=== PATIENT | male | born 1970 | race Caucasian/White ===

== ENCOUNTER 2021-05-12 10:40 | Emergency (ER) | payer OTHER ==
[2021-05-12 10:49] VITALS: BP 157/100; PULSE 64; TEMP 97.5; BMI 28.1
== END 2021-05-12 12:15 | disposition home or self-care (01) ==
LOC: FER 10:40
DX: R22.41 Localized swelling, mass and lump, right lower limb (principal)
CPT/HCPCS: 93970-TC; 99284-25

== ENCOUNTER 2023-08-13 19:57 | Emergency (ER) | payer OTHER ==
[2023-08-13 20:06] VITALS: BP 122/79; PULSE 65; RESP 16; TEMP 98.8; BMI 28.2
== END 2023-08-13 21:33 | disposition home or self-care (01) ==
LOC: FER 19:57
DX: S92.901A Unspecified fracture of right foot, initial encounter for closed fracture (principal); W01.0XXA Fall on same level from slipping, tripping and stumbling without subsequent striking against object, initial encounter; Y92.9 Unspecified place or not applicable
CPT/HCPCS: 73610-TC-RT-FY; 73630-TC-RT-FY; 99283-25